=== PATIENT | female | born 2000 ===

== ENCOUNTER 2024-11-18 00:11 | Inpatient (IN) | payer MEDICAID ==
[2024-11-18] MEDS ORDERED: Butorphanol 2 MG/ML SDV IVPUSH PRN (00:14)
[2024-11-18] MEDS ORDERED: Terbutaline 1 MG/ML SDV SUBCUT PRN ×2 (00:14→02:07)
[2024-11-18] MEDS ORDERED: Sodium Chloride 0.9% 10 ML Syringe FLUSH PRN (00:14)
[2024-11-18] MEDS ORDERED: Methylergonovine 0.2 MG/1 ML Amp IM PRN (00:14)
[2024-11-18] MEDS ORDERED: Sodium Chloride 0.9% 20 ML SDV IV PRN (00:14)
[2024-11-18] MEDS ORDERED: Lidocaine 1% 50 ML MDV INJECT PRN (00:14)
[2024-11-18] MEDS ORDERED: Sodium Chloride 0.9% 2.5 ML Syringe FLUSH PRN (00:14)
[2024-11-18] MEDS ORDERED: Carboprost Tromethamine 250 MCG/1 mL Vial IM PRN (00:14)
[2024-11-18] MEDS ORDERED: Ondansetron 4 MG/2 ML SDV IVPUSH PRN (00:14)
[2024-11-18] MEDS ORDERED: Misoprostol 200 MCG Tab PO PRN (00:14)
[2024-11-18] MEDS ORDERED: Oxytocin/0.9 % Sodium Chloride 30 UNIT/500 ML BAG IV SCH (00:15)
[2024-11-18] MEDS: Lactated Ringers 1,000 ML IV SCH (01:00)
[2024-11-18 01:09] LABS: HEMOGLOBIN 12.9 g/dL (12.0-16.0); MEAN CORPUSCULAR HEMOGLOBIN 30.5 pg (28.0-32.0); MEAN CORPUSCULAR HGB CONC 34.9 g/dL (32.0-36.0); MEAN CORPUSCULAR VOLUME 87.5 fL (83.0-99.0); MEAN PLATELET VOLUME 11.9 fL (9.4-12.3); PLATELET COUNT,PLT 194 K/uL (150-400); RED BLOOD CELL COUNT 4.23 M/uL (4.10-5.30); WHITE BLOOD CELL COUNT,WBC 9.52 K/uL (3.9-11.3)
[2024-11-18] MEDS: Misoprostol 25 MCG (1/4 of 100 MCG) Tab PO ONE (02:22)
[2024-11-18] MEDS: Misoprostol 25 MCG (1/4 of 100 MCG) Tab VAG PRN (02:23)
[2024-11-18] MEDS ORDERED: Misoprostol 25 MCG (1/4 of 100 MCG) Tab VAG PRN (06:30)
[2024-11-18] MEDS: Oxytocin/0.9 % Sodium Chloride 30 UNIT/500 ML BAG IV SCH (06:37)
[2024-11-18] MEDS ORDERED: Bupivacaine 0.5% 10 ML SDV ONE (08:06)
[2024-11-18] MEDS ORDERED: Phenylephrine HCl In 0.9% NaCl 1 MG/10 ML Syringe ONE (08:07)
[2024-11-18] MEDS ORDERED: Ropivacaine HCl/PF 200 ML ONE (08:07)
[2024-11-18] MEDS ORDERED: ePHEDrine 50 MG/ML SDV IVPUSH PRN (08:40)
[2024-11-18] MEDS ORDERED: Bupivacaine 0.5% 10 ML SDV INJECT ONE (08:40)
[2024-11-18] MEDS ORDERED: ePHEDrine 50 MG/ML SDV IM PRN (08:40)
[2024-11-18] MEDS ORDERED: Phenylephrine HCl In 0.9% NaCl 1 MG/10 ML Syringe IVPUSH PRN (08:40)
[2024-11-18] MEDS ORDERED: dexmedeTOMIDine HCl 200 MCG/2 ML SDV EPIDUR SCH (08:45)
[2024-11-18] MEDS: Tranexamic Acid in NACL,ISO-OS 1,000 MG in Premix Bag 1 BAG IV PRN (13:20)
[2024-11-18] MEDS: Misoprostol 200 MCG Tab RECTAL PRN (13:24)
[2024-11-18] MEDS: Ropivacaine HCl/PF 400 MG in Premix Bag 1 BAG EPIDUR SCH (13:55)
[2024-11-18] MEDS: Water For Irrigation,Sterile 1,000 ML Container IRR PRN (14:59)
[2024-11-18] MEDS ORDERED: Simethicone 80 MG Tab.Chew PO PRN (17:59)
[2024-11-18] MEDS ORDERED: Lanolin 100% Cream 7 GM Tube TOP PRN (17:59)
[2024-11-18] MEDS ORDERED: Docusate Sodium 100 MG Cap PO PRN (17:59)
[2024-11-18 18:14] LABS: PH,UMBILICAL ARTERIAL 7.25 (7.18-7.38); PH,UMBILICAL VENOUS 7.295 (7.25-7.45)
[2024-11-18] MEDS: Ibuprofen 800 MG Tab PO PRN (18:20)
[2024-11-18] MEDS: Witch Hazel Medicated Pads 40/Jar TOP PRN (18:32)
[2024-11-18] MEDS: Benzocaine/Menthol 20%-0.5% Spray 78 GM Cannister TOP PRN (18:34)
[2024-11-18] MEDS: Acetaminophen 500 MG Tab PO PRN (20:12)
[2024-11-19 06:22] LABS: BASOPHILS ABSOLUTE AUTO 0.02 K/uL (0.00-0.20); BASOPHILS PERCENT AUTO 0.2 % (0.0-1.0); EOSINOPHILS ABSOLUTE AUTO 0.04 K/uL (0.00-0.45); EOSINOPHILS PERCENT AUTO 0.4 % (0.0-6.0); HEMOGLOBIN 10.8 g/dL (12.0-16.0); IMMATURE GRAN ABSOLUTE AUTO 0.03 K/uL (0.00-0.05); IMMATURE GRAN PERCENT AUTO 0.3 % (0.0-0.4); LYMPHOCYTES ABSOLUTE AUTO 2.62 K/uL (1.00-4.80); LYMPHOCYTES PERCENT AUTO 28.8 % (24.0-44.0); MEAN CORPUSCULAR HEMOGLOBIN 30.1 pg (28.0-32.0); MEAN CORPUSCULAR HGB CONC 33.8 g/dL (32.0-36.0); MEAN CORPUSCULAR VOLUME 89.1 fL (83.0-99.0); MEAN PLATELET VOLUME 11.5 fL (9.4-12.3); MONOCYTES ABSOLUTE AUTO 0.78 K/uL (0.00-0.80); MONOCYTES PERCENT AUTO 8.6 % (0.0-8.0); NEUTROPHILS PERCENT AUTO 61.7 % (41.0-71.0); PLATELET COUNT,PLT 150 K/uL (150-400); RED BLOOD CELL COUNT 3.59 M/uL (4.10-5.30); WHITE BLOOD CELL COUNT,WBC 9.09 K/uL (3.9-11.3)
== END 2024-11-19 17:00 | disposition home or self-care (01) | DRG 807 ==
LOC: MW.OB 00:11 → OBSVTOIN 17:59 → MW.OB 18:41
PROVIDERS: ADMIT Obstetrics & Gynecology; ATTEND Obstetrics & Gynecology
PROC: 10E0XZZ Delivery of Products of Conception, External Approach (ICD-10-PCS; principal; 2024-11-18)
PROC: 3E033VJ Introduction of Other Hormone into Peripheral Vein, Percutaneous Approach (ICD-10-PCS; 2024-11-18)
PROC: 3E0R3BZ Introduction of Anesthetic Agent into Spinal Canal, Percutaneous Approach (ICD-10-PCS; 2024-11-18)
PROC: 00HU33Z Insertion of Infusion Device into Spinal Canal, Percutaneous Approach (ICD-10-PCS; 2024-11-18)
DX: O48.0 Post-term pregnancy (principal); Z37.0 Single live birth; O99.213 Obesity complicating pregnancy, third trimester; O99.214 Obesity complicating childbirth; O77.0 Labor and delivery complicated by meconium in amniotic fluid; O70.0 First degree perineal laceration during delivery; O69.81X0 Labor and delivery complicated by cord around neck, without compression, not applicable or unspecified; O14.04 Mild to moderate pre-eclampsia, complicating childbirth; Z3A.40 40 weeks gestation of pregnancy
CPT/HCPCS: 36415; 51702; 59025; 59409; 82803; 85025; 85027; 86592; 86850; 86900; 86901; 86920; A9270-GY; J0665; J2590; J2795; J3490; J7120